=== PATIENT | female | born 1940 | race Caucasian/White ===

== ENCOUNTER 2025-02-16 13:22 | Outpatient (CLI) | payer MEDICARE, MEDICAID ==
[~2025-02-16 13:22] MED LIST: AMLO5TAB95; CYCL-1; ESTR0.5T28; LISI40TA20; TRAZ-256
--- NOTE | 2025-02-16 13:55 | RADIOLOGY REPORT ---
EXAM: CT CT HEAD INDICATION: POSTNASAL DRIP COMPARISON: None TECHNIQUE: CT of the head without intravenous contrast. Radiation Dose Information: CT Dose: CTDI volume is 49 mGy. Dose-length product is 852 mGy*cm The dose indicators for CT are the volume Computed Tomography (CT) Dose Index (CTDIvol) and the Dose Length Product (DLP), and are measured in units of mGy and mGy-cm, respectively. These indicators are not patient dose, but values generated from the CT scanner acquisition factors. The report includes radiation exposure data for exposures received during this examination. FINDINGS: Scattered hypoattenuation in the periventricular and subcortical white matter, suggestive of chronic microvascular disease. Mild brain volume loss. There is no mass-effect, hemorrhage, midline shift, or abnormal extra-axial fluid collection visible. No calvarial fracture. Essentially clear visualized paranasal sinuses. Mastoid air cells are clear. IMPRESSION: No acute intracranial hemorrhage or mass effect.
== END 2025-02-16 23:59 | disposition home or self-care (01) ==
LOC: RAD 13:22
PROVIDERS: ATTEND Student in an Organized Health Care Education/Training Program
DX: G93.89 Other specified disorders of brain (principal); R09.82 Postnasal drip; R90.82 White matter disease, unspecified
CPT/HCPCS: 70450